=== PATIENT | male | born 1950 | race Two or more races ===

== ENCOUNTER 2017-11-17 07:37 | Outpatient (CLI) | payer OTHER | END 2017-11-17 07:45 | disposition home or self-care (01) | LOC: RX STUDY 07:37 | DX: K31.84 Gastroparesis (principal) ==

== ENCOUNTER 2017-11-24 11:05 | Outpatient (CLI) | payer OTHER | END 2017-11-24 11:07 | disposition home or self-care (01) | LOC: SONOGRAMA 11:05 | DX: M25.551 Pain in right hip (principal); M16.11 Unilateral primary osteoarthritis, right hip; M76.891 Other specified enthesopathies of right lower limb, excluding foot; M25.651 Stiffness of right hip, not elsewhere classified ==